=== PATIENT | female | born 1975 | race Caucasian/White ===

== ENCOUNTER 2023-04-19 17:04 | Inpatient (IN) | payer OTHER, SELFPAY ==
[2023-04-19 17:37] VITALS: BMI 26.6
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
[2023-04-20 09:50] LABS: Alanine Aminotransferase 15 U/L (0-31); Albumin Level 4.1 g/dL (3.5-5.0); Alkaline Phosphatase 87 U/L (39-117); Anion Gap 14 (12-20); Aspartate Amino Transferase 14 U/L (5-31); Bilirubin Total 0.6 mg/dL (0.0-1.0); Blood Urea Nitrogen 12 mg/dL (9-16); Calcium 9.7 mg/dL (8.4-10.2); Carbon Dioxide 23 mmol/L (22-29); Chloride 106 mmol/L (96-108); Cholesterol 220 mg/dL; Creatinine Clr Calc Pharmacy 89.8; Estimated Glomerular Filt Rate > 60; Glucose Fasting 153 mg/dL (60-99); HDL Cholesterol 37 mg/dL; LDL Cholesterol Calculated 145 mg/dl; Sodium 139 mmol/L (135-145); Triglycerides 194 mg/dL
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
--- NOTE | 2023-04-20 12:27 | HO.PM.IMCN ---
History of Present Illness Data of Consult Service Date: 04/20/23 Requesting physician: Branden Tamayo Primary Care Provider: Unknown Physician HPI Reason for consult: medical H&P 47-year-old female with history of mild intermittent asthma and migraines who is a current 1/2 pack per day smoker admitted to Psychiatry consult placed to hospital service for medical H and P. She currently has no complaints. She tells me that she was previously taking metformin for fertility issues but is now only using this for constipation. Has been having loose stool reports last bowel movement was this morning. She denies any alcohol use or illicit drug use. Review of Systems Review of Systems: General: No fevers, malaise, unintentional weight loss HEENT: No blurred vision, diplopia. No sore throat, nasal congestion, rhinorrhea, sinus pain, ear pain Cardiovascular: No chest pain, palpitations, or leg edema Respiratory: No shortness of breath, wheezing, cough GI: +constipation. No abdominal pain, nausea, vomiting, diarrhea, melena, hematochezia : No dysuria, hematuria, increased urinary frequency, decreased urinary output MSK: No myalgia, back pain Neuro: No headaches, weakness, paresthesias Skin: No rashes or lesions [facility] Medical History (Updated 04/20/23 @ 15:38 by ARTHUR Monteiro) Asthma Migraines Social History Housing: House Do you presently have visiting nurse or other home services: No Patient Tobacco Use Status: Current everyday Tobacco user Tobacco use type: Cigarette Cigarette Packs Per Day: 1 Cigarettes Per Day: 20.0 Years Smoked: 20 Smoked in Last 30 Days: Yes e-Cigarette/Vaping Use: Never Used Patient Interested in Nicotine Replacement: Yes Date Education Initiated: 04/19/23 Second Hand Smoke Exposure: No Currently Displaying Signs/Symptoms of Drug Intoxication Withdrawal: No Spiritual Healthcare Practices: NONE Catholic Healthcare Practices: NONE Cultural Healthcare Practices: NONE Advance Directives: No Advance Directives Information Provided: Yes Do you have thoughts of harming others: None Do you have a plan to hurt others: No Plan Nutrition Risks: No Nutritional Risk Patient : No : No Poor oral hygiene: No Meds Allergies Allergy/AdvReac Type Severity Reaction Status Date / Time azithromycin [AZITHROMYCIN] Allergy Unknown UNKNOWN, Unverified 06/18/20 19:27 hives Active Medications: Current Medications Acetaminophen (Acetaminophen 325 Mg Tablet) 650 mg PO Q6H PRN PRN Reason: Headache/Pain Mild Scale (1-3) Al Hydroxide/Mg Hydroxide (Magnesium Hydrox/Alum Hydrox 30 Ml Oral.Susp) 30 ml PO Q6H PRN PRN Reason: Heartburn/Nausea Hydroxyzine HCl (Hydroxyzine Hcl 25 Mg Tablet) 25 mg PO Q6H PRN PRN Reason: Anxiety Magnesium Hydroxide (Milk Of Magnesia 30 Ml Oral.Susp) 30 ml PO DAILY PRN PRN Reason: Constipation Nicotine Polacrilex (Nicotine Polacrilex 2 Mg Gum) 4 mg BUCCAL Q2H PRN PRN Reason: Nicotine Cravings Trazodone HCl (Trazodone Hcl 50 Mg Tablet) 50 mg PO BEDTIME MRX1 PRN PRN Reason: Insomnia Physical Exam Vital Signs and Narrative: Vital Signs: BMI result Body Mass Index 26.6 Constitutional - Awake and Alert, No apparent distress Eyes - PERRLA, EOMI Cardiovascular - S1S2, RRR, No edema Respiratory - Normal lung expansion, Normal respiratory effort, No respiratory distress, CTA bilaterally Gastrointestinal - NT / ND; +BS; No rebound or guarding Extremities - no calf tenderness bilaterally, no swelling Skin - Warm/Dry Neurological - Alert & oriented x3, CN II-XII in tact, 5/5 strength BUE and BLE Psychological - Appropriate affect Results Labs 04/20/23 08:09 Labs: Laboratory Results - last 24 hr 04/20/23 08:09 Anion Gap 14 Estim Creat Clear Calc 89.8 Estimated GFR > 60 Fasting Glucose 153 H Calcium 9.7 Total Bilirubin 0.6 AST 14 ALT 15 Alkaline Phosphatase 87 Total Protein 7.0 Albumin 4.1 Triglycerides 194 Cholesterol 220 LDL Cholesterol, Calc 145 HDL Cholesterol 37 Assessment and Plan (1) Routine medical exam: Status: Acute Plan 47-year-old female with history of mild intermittent asthma and migraines who is a current 1/2 pack per day smoker admitted to Psychiatry consult placed to hospital service for medical H and P. #Mood disorder -plan per psychiatry #Mild intermittent asthma -albuterol prn #Chronic constipation -Pt was taking metformin for fertility, now using to manage constipation. Discontinue metformin -Add colace BID -Miralax prn #Nicotine dependence -Smoking cessation counseling -NRt Thank you for allowing me to participate in this consult. Signing off at this time. Please do not hesitate to call for further questions. Time Spent With Patient Time: Total time managing care of this patient today ____ minutes.
[2023-04-20] MEDS: FLUoxetine HCl 10 MG CAPSULE PO (14:00)
--- NOTE | 2023-04-20 15:54 | MHC.RECOVRN ---
This typewriter assembly and parts inspector met with patient, after pt request meeting with [employer] Cartridge Tester. Pt reports substance of choice PCP. Pt states was in recovery from 2019 up until 1 month ago. Pt reports recurrence past month. Pt states in the past worked with [facility] and found it helpful/supportive. Pt reports has worked at [facility] in the past. [employer] Cartridge Tester to meet with patient tonite between 6-10pm. Pt agreeable.
[2023-04-20 16:09] VITALS: BP 96/55; PULSE 65; RESP 18; TEMP 36.4; O2SAT 98
[2023-04-20] MEDS: traZODone HCL 50 MG TABLET PO (21:25)
[2023-04-20] MEDS: Melatonin 3 MG TABLET PO (21:25)
[2023-04-20] MEDS: Docusate Sodium 100 MG CAPSULE PO (21:32)
[2023-04-21 06:00] VITALS: BP 98/52; PULSE 83; RESP 18; O2SAT 99
[2023-04-21] MEDS: Docusate Sodium 100 MG CAPSULE PO ×2 (09:10→21:11)
[2023-04-21] MEDS: Multivitamin TABLET 1 TAB PO (09:10)
[2023-04-21] MEDS: FLUoxetine HCl 10 MG CAPSULE PO (09:10)
[2023-04-21] MEDS: Folic Acid 1 MG TABLET PO (09:10)
--- NOTE | 2023-04-21 09:37 | PC.NURSE ---
Pt signed a 3-day on Monday04/21/23 that will be up on Monday04/26/23.
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
[2023-04-21 18:00] VITALS: BP 94/58; PULSE 56; TEMP 36.3; O2SAT 100
[2023-04-21] MEDS: traZODone HCL 50 MG TABLET PO (21:11)
[2023-04-22] MEDS: FLUoxetine HCl 10 MG CAPSULE PO (09:31)
[2023-04-22] MEDS: Multivitamin TABLET 1 TAB PO (09:32)
[2023-04-22] MEDS: Folic Acid 1 MG TABLET PO (09:32)
[2023-04-22] MEDS: Docusate Sodium 100 MG CAPSULE PO (09:32)
[2023-04-22 10:41] VITALS: BP 104/61; PULSE 77; RESP 16; TEMP 36.9; O2SAT 99
[2023-04-22] MEDS: NeoMY/Polymyx/Bacit/Ointment 14 GM Tube TOPICAL (13:23)
[2023-04-22] MEDS: Mineral Oil/Petrolatum,White 106 GM Tube 1 APPL TOPICAL (13:24)
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
[2023-04-23 08:47] VITALS: BP 92/62; PULSE 75; RESP 16; TEMP 36.9; O2SAT 98
[2023-04-23] MEDS: NeoMY/Polymyx/Bacit/Ointment 14 GM Tube TOPICAL ×2 (08:51→21:18)
[2023-04-23] MEDS: Mineral Oil/Petrolatum,White 106 GM Tube 1 APPL TOPICAL ×2 (08:51→21:17)
[2023-04-23] MEDS: Folic Acid 1 MG TABLET PO (08:52)
[2023-04-23] MEDS: FLUoxetine HCl 10 MG CAPSULE PO (08:52)
[2023-04-23] MEDS: Multivitamin TABLET 1 TAB PO (08:52)
[2023-04-23] MEDS: Docusate Sodium 100 MG CAPSULE PO ×2 (08:52→21:15)
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
[2023-04-23 21:00] VITALS: BP 118/68; PULSE 72; TEMP 35.7
[2023-04-23] MEDS: Mirtazapine 15 MG TABLET PO (21:16)
[2023-04-24] MEDS: Folic Acid 1 MG TABLET PO (08:38)
[2023-04-24] MEDS: Multivitamin TABLET 1 TAB PO (08:38)
[2023-04-24] MEDS: FLUoxetine HCl 10 MG CAPSULE PO ×2 (08:39→18:45)
[2023-04-24] MEDS: Docusate Sodium 100 MG CAPSULE PO ×2 (08:39→21:09)
[2023-04-24 09:00] VITALS: BP 102/63; PULSE 69; RESP 16; TEMP 36.4; O2SAT 98
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
[2023-04-24 21:00] VITALS: BP 90/53; PULSE 68; TEMP 35.9; O2SAT 100
[2023-04-24] MEDS: traZODone HCL 50 MG TABLET PO (21:09)
[2023-04-24] MEDS: Melatonin 3 MG TABLET 6 MG PO (21:09)
[2023-04-24] MEDS: cloNIDine HCL 0.1 MG TABLET 0.05 MG PO (21:10)
[2023-04-25 06:00] VITALS: BP 100/51; PULSE 69; RESP 18; TEMP 36.6; O2SAT 98
[2023-04-25] MEDS: Mineral Oil/Petrolatum,White 106 GM Tube 1 APPL TOPICAL (08:32)
[2023-04-25] MEDS: Multivitamin TABLET 1 TAB PO (08:33)
[2023-04-25] MEDS: FLUoxetine HCl 20 MG CAPSULE PO (08:33)
[2023-04-25] MEDS: Docusate Sodium 100 MG CAPSULE PO ×2 (08:33→21:39)
[2023-04-25] MEDS: NeoMY/Polymyx/Bacit/Ointment 14 GM Tube TOPICAL (08:33)
[2023-04-25] MEDS: Folic Acid 1 MG TABLET PO (08:33)
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
[2023-04-25 17:42] VITALS: BP 118/73; PULSE 58; RESP 16; TEMP 36.2; O2SAT 98
[2023-04-25] MEDS: Melatonin 3 MG TABLET 6 MG PO (21:37)
[2023-04-25] MEDS: cloNIDine HCL 0.1 MG TABLET 0.05 MG PO (21:38)
[2023-04-25] MEDS: traZODone HCL 50 MG TABLET PO (21:39)
[2023-04-26 06:00] VITALS: BP 92/54; PULSE 77; RESP 16; TEMP 37; O2SAT 99
[2023-04-26] MEDS: FLUoxetine HCl 20 MG CAPSULE PO (08:37)
[2023-04-26] MEDS: Docusate Sodium 100 MG CAPSULE PO ×2 (08:37→20:32)
[2023-04-26] MEDS: Folic Acid 1 MG TABLET PO (08:37)
[2023-04-26] MEDS: Multivitamin TABLET 1 TAB PO (08:37)
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
[2023-04-26] MEDS: Nicotine 21 MG PATCH.TD24 TRANSDERMA (12:44)
[2023-04-26] MEDS: cloNIDine HCL 0.1 MG TABLET 0.05 MG PO ×2 (17:54→20:32)
[2023-04-26 20:20] VITALS: BP 120/56; PULSE 76
[2023-04-26] MEDS: Melatonin 3 MG TABLET 6 MG PO (20:32)
[2023-04-26] MEDS: traZODone HCL 50 MG TABLET PO (20:32)
[2023-04-27 06:00] VITALS: BP 124/67; PULSE 82; RESP 18; TEMP 36.7; O2SAT 98
[2023-04-27] MEDS: Docusate Sodium 100 MG CAPSULE PO (08:17)
[2023-04-27] MEDS: Folic Acid 1 MG TABLET PO (08:17)
[2023-04-27] MEDS: Multivitamin TABLET 1 TAB PO (08:17)
[2023-04-27] MEDS: FLUoxetine HCl 20 MG CAPSULE PO (08:17)
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
--- NOTE | 2023-05-10 14:46 | PM.EVENT ---
Documented by User: Marilynn CaceresAmparoRandall, GLASS MELT OPERATOR 05/10/23 15:56 Event Note Date of Service: 05/10/23 Event Note: Call from pt [phone] to request refill for Trazodone. Pt was informed that #30 Trazodone were sent to her pharmacy on 04/27 with one refill and she will have enough to cover her needs until her med appt on 05/24. Second call from pt who reports she has been taking 2 however they do not work, causing nightmares and LEANDRO. Discussed stopping Trazodone. Will trial Seroquel 50 mg HS x 7 tabs. She is in agreement. Time Spent With Patient Time: Total time managing care of this patient today ____ minutes. Documented by User: Branden Tamayo MD 05/10/23 23:22 Event Note Date of Service: 05/10/23
== END 2023-04-27 11:00 | disposition home or self-care (01) | DRG 885 ==
PROVIDERS: Psychiatry & Neurology Psychiatry; Admitting Provider Psychiatry & Neurology Psychiatry; Visit Provider Psychiatry & Neurology Psychiatry
DX: F33.2 Major depressive disorder, recurrent severe without psychotic features (principal); F16.20 Hallucinogen dependence, uncomplicated; J45.20 Mild intermittent asthma, uncomplicated; K59.09 Other constipation; F17.210 Nicotine dependence, cigarettes, uncomplicated; Z71.6 Tobacco abuse counseling; F43.10 Post-traumatic stress disorder, unspecified; Z98.84 Bariatric surgery status; Z79.899 Other long term (current) drug therapy
CPT/HCPCS: 36415; 80053; 80061

== ENCOUNTER → 2023-04-19 17:04 | Outpatient (BNV) | payer OTHER, SELFPAY | PROVIDERS: Admitting Provider Psychiatry & Neurology Psychiatry; Visit Provider Psychiatry & Neurology Psychiatry | DX: F33.1 Major depressive disorder, recurrent, moderate (principal); F43.11 Post-traumatic stress disorder, acute; F16.21 Hallucinogen dependence, in remission | CPT/HCPCS: 90792; 99231; 99232; 99238; 99499 ==

== ENCOUNTER → 2023-04-19 17:04 | Outpatient (BNV) | payer OTHER, SELFPAY | PROVIDERS: Admitting Provider Psychiatry & Neurology Psychiatry; Visit Provider Physician Assistant | DX: K59.04 Chronic idiopathic constipation (principal); J45.20 Mild intermittent asthma, uncomplicated | CPT/HCPCS: 99221 ==

== ENCOUNTER 2023-12-23 19:25 | Emergency (ER) | payer OTHER, SELFPAY ==
[2023-12-23 19:55] VITALS: BP 137/81; BP 152/98; PULSE 109; PULSE 123; RESP 14; TEMP 37.1; O2SAT 96; BMI 29.2
--- NOTE | 2023-12-23 20:09 | PC.NURSE ---
pt changed in hospital attire , belongings secured in pod closet
--- NOTE | 2023-12-23 20:20 | ED_ITS ---
HPI - General Adult General Chief complaint: ETOH/Substance Use Stated complaint: PD called due to concerning behavior, smell of alc Time Seen by Provider: 12/23/23 20:26 Source: patient and EMS Mode of arrival: EMS Limitations: other History of Present Illness HPI narrative: Patient comes to the emergency room via ambulance. According to EMS, [place] police department found the patient at [facility] [employer] smelling of alcohol and acting bizarre. Patient states that she had 4 alcoholic drinks at a friend's basketball game. Patient denies SI or HI. Related Data Previous Rx's ?Medication ?Instructions ?Recorded albuterol sulfate 90 mcg/actuation 2 puff inhalation RQ4H PRN 04/27/23 aerosol inhaler (Ventolin HFA) Shortness Of Breath 30 days #6.7 grams clonidine HCl 0.1 mg tablet 0.05 mg PO Q4H PRN 04/27/23 anxiety/insomnia 30 days #90 tabs docusate sodium 100 mg capsule 100 mg PO BID 30 days #60 caps 04/27/23 fluoxetine 20 mg capsule 20 mg PO DAILY 30 days #30 caps 04/27/23 folic acid 1 mg tablet 1 mg PO DAILY #0 tabs 04/27/23 melatonin 5 mg tablet 5 mg PO BEDTIME PRN sleep 30 days 04/27/23 #30 tabs multivitamin (Daily-Yoel tablet) 1 tab PO DAILY #0 tabs 04/27/23 nicotine 21 mg/24 hr daily 21 mg transdermal DAILY PRN 04/27/23 transdermal patch smoking cessation 28 days #28 ea trazodone 50 mg tablet 50 mg PO BEDTIME PRN Insomnia 30 04/27/23 days #30 tabs quetiapine 50 mg tablet (Seroquel) 50 mg PO BEDTIME PRN insomnia #7 05/10/23 tabs Allergies Allergy/AdvReac Type Severity Reaction Status Date / Time azithromycin [AZITHROMYCIN] Allergy Unknown UNKNOWN, Unverified 06/18/20 19:27 hives Review of Systems Review of Systems: Constitutional : No Weight loss, No Fever, No Chills, No Night Sweats, No Fatigue, No Malaise ENT/Mouth : No Hearing loss, No Ear Pain, No Nasal Congestion, No Sinus Pain, No Hoarseness, No sore throat, No Rhinorrhea, No Swallowing Difficulty Eyes: No Eye Pain, No Swelling, No Redness, No Foreign Body, No Discharge, No Vision Changes Cardiovascular : No Chest Pain, No SOB, No Dyspnea on Exertion, No Orthopnea, No Edema, No Palpitations Respiratory : No Cough, No Sputum, No Wheezing, No Smoke Exposure, No Dyspnea Gastrointestinal : No Nausea, No Vomiting, No Diarrhea, No Constipation, No abdominal Pain, No Hematochezia, No Melena Genitourinary : no irregular bleeding, No Dysuria, No Urinary Frequency, No Hematuria, No Urinary Incontinence, No Urgency, No Flank Pain, No Urinary Flow Changes, No Hesitancy Musculoskeletal : No joint pain, No Myalgias, No Joint Swelling Skin : No Skin Lesions, No rash Neuro : No Weakness, No Numbness, No Paresthesias, No Loss of Consciousness, No Dizziness, No Headache Psych : No Anxiety/Panic, No Depression, No SI/HI/AH/VH, admits to drinking alcohol Heme/Lymph: No Bruising, No Bleeding,No Lymphadenopathy Endocrine : No Polyuria, No Polydipsia, No Temperature Intolerance [facility] Past Medical History Medical History PTSD (post-traumatic stress disorder) MDD (major depressive disorder), recurrent episode, moderate Migraines Asthma Social History Social History Housing: House Do you presently have visiting nurse or other home services: No Alcohol intake: current Alcohol type: hard liquor Patient Tobacco Use Status: Current everyday Tobacco user Tobacco use type: Cigarette Cigarette Packs Per Day: 1 Cigarettes Per Day: 20.0 Years Smoked: 20 Smoked in Last 30 Days: No e-Cigarette/Vaping Use: Never Used Second Hand Smoke Exposure: No Use of substances other than those prescribed or required for medical reasons: Yes Substance Use Type: Marijuana Advance Directives: No Advance Directives Information Provided: No Patient : No service: No Sexual orientation: Straight/Heterosexual Physical Exam ED Vital Signs: Vital Signs - 24 hr 12/23/23 19:55 Temperature 98.7 F Pulse Rate 109 H Respiratory Rate 14 Blood Pressure 137/81 Pulse Oximetry 96 Oxygen Delivery Method Room Air BMI result Body Mass Index 29.2 Const Other: Appearance: Alert. Oriented X3. No acute distress. Patient does have bizarre behavior. However, patient is still congruent Eyes: Pupils equal, round and reactive to light. ENT: Pharynx normal. Neck: Normal inspection. Neck supple. No lymph nodes noted. No crepitus CVS: Normal heart rate and rhythm. Pulses normal. Normal S1 and S2 Respiratory: No respiratory distress. Breath sounds normal. No Wheezing. No rales Abdomen: Soft and nontender. No rigidity. No distention. Skin: Skin warm and dry. Normal skin color. Normal skin turgor. Extremities: No lower extremity edema. No Lacerations. No Rash Neuro: Oriented X 3. No motor deficit. No sensory deficit. Moving all extremities. No slurred speech. CN 2 through 12 grossly intact Psych: calm, cooperative, normal affect, steady gait Medical Decision Making Medical Decision Making MDM Narrative: -patient has a bizarre affect, yet patient is alert and oriented x3. Has steady gait. Patient states that she does not want any treatment and is requesting to be discharged. Patient is clinically sober -patient is adamant that she has not suicidal or homicidal. -patient is calm and cooperative and making sense. -at this time, there is no reason to Section 12 the patient -patient declined any further evaluation. Differential Diagnosis Differential Diagnoses: The differential diagnosis associated with the presentation includes (Anxiety, alcohol intoxication, substance abuse, bizarre behavior) Discharge Plan Discharge Clinical Impression: Bizarre behavior Patient Disposition: Home, Self-Care Additional Instructions: Please follow-up with your primary care physician tomorrow. If you have any worsening or new symptoms, please return to the emergency room or call 911 Prescriptions: No Action albuterol sulfate [Ventolin HFA] 90 mcg/actuation Hfa Aerosol Inhaler 2 puff inhalation RQ4H PRN (Reason: Shortness Of Breath) 30 Days Qty: 6.7 0RF nicotine 21 mg/24 hr Patch 24 Hour 21 mg transdermal DAILY PRN (Reason: smoking cessation) 28 Days Qty: 28 1RF Rx Instructions: remove at bedtime clonidine HCl 0.1 mg Tablet 0.05 mg PO Q4H PRN (Reason: anxiety/insomnia) 30 Days Qty: 90 1RF Protocol: Hold for SBP< HOLD for SBP < : 90 fluoxetine 20 mg Capsule 20 mg PO DAILY 30 Days Qty: 30 1RF trazodone 50 mg Tablet 50 mg PO BEDTIME PRN (Reason: Insomnia) 30 Days Qty: 30 1RF docusate sodium 100 mg Capsule 100 mg PO BID 30 Days Qty: 60 1RF Rx Instructions: hold for loose stool melatonin 5 mg tablet 5 mg PO BEDTIME PRN (Reason: sleep) 30 Days Qty: 30 1RF folic acid 1 mg Tablet 1 mg PO DAILY Qty: 0 0RF multivitamin [Daily-Yoel] Tablet 1 tab PO DAILY Qty: 0 0RF quetiapine [Seroquel] 50 mg tablet 50 mg PO BEDTIME PRN (Reason: insomnia) Qty: 7 0RF Interventions: ED Discharge Assessment Last Done: 12/23/23 20:35 Discharge Date/Time: 12/23/23 20:35 Print Language: Spanish
[2023-12-23 20:35] VITALS: BP 137/81; PULSE 109; RESP 14; TEMP 37.1; O2SAT 96
--- NOTE | 2023-12-23 20:35 | PC.NURSE ---
per dr mena pt safe for discharge. 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 p provided with belongings prior to discharge. pt refused final set of vitals. pt provided with discharge packet. pt verbalized understanding of discharge plan
== END 2023-12-23 20:35 | disposition home or self-care (01) ==
PROVIDERS: Emergency Provider Emergency Medicine
DX: F91.9 Conduct disorder, unspecified (principal); F17.210 Nicotine dependence, cigarettes, uncomplicated
CPT/HCPCS: 99282; 99284